=== PATIENT | female | born 1945 | race Two or more races ===

== ENCOUNTER 2022-01-18 19:30 | Emergency (ER) | payer OTHER ==
[~2022-01-18] VITALS: Ht 157.5 cm; Wt 90.7 kg
--- NOTE | 2022-01-18 20:50 | NUR ---
BIBFAMILY. L SHOULDER PAIN S.P TRIP AND FALL. -HT. PATIENT ALERT AND ORIENTED X3. AMBULATORY WITH NON LABORED BREATHING.
--- NOTE | 2022-01-18 21:25 | NUR ---
PAGED [employer]TH[employer]UCKER, MAGO ARNDT. MONIK CASTELLANOS AND MAGO ARNDT ARE SPEAKING
--- NOTE | 2022-01-18 21:30 | NUR ---
SPLINT APPLIED WITH AT BEDSIDE
--- NOTE | 2022-01-18 21:30 | NUR ---
COVID SWAB DONE AND SENT TO LAB
--- NOTE | 2022-01-18 22:04 | NUR ---
[facility] [phone]
--- NOTE | 2022-01-18 22:08 | NUR ---
EMT AT BEDSIDE FOR EKG
[2022-01-18 22:17] LABS: BASOPHILS % (AUTO) 0.3 % (0.0-2.0); EOSINOPHILS % (AUTO) 0.1 % (0.0-6.0); HEMATOCRIT 42 % (33-45); HEMOGLOBIN 13.9 g/dL (11.5-14.8); LYMPHOCYTES % (AUTO) 7.6 % (20.0-44.0); MEAN CORPUSCULAR HGB CONC 33 g/dl (31.0-36.0); MEAN CORPUSCULAR VOLUME 88 fL (82-100); MONOCYTES # (AUTO) 0.5 K/uL (0.1-1.30); NEUTROPHILS # (AUTO) 11.8 K/uL (1.8-8.9); PLATELET COUNT (AUTO) 192 K/uL (150-450); RED BLOOD CELL COUNT(AUTO) 4.78 MIL/uL (4.0-5.2); WHITE BLOOD COUNT (AUTO) 13.4 K/uL (4.3-11.0)
[2022-01-18 22:34] LABS: CALCIUM, SERUM 8.9 mg/dL (8.5-10.1); CREATININE 0.7 mg/dL (0.6-1.3); POTASSIUM 3.4 mmol/L (3.5-5.1)
--- NOTE | 2022-01-18 22:44 | NUR ---
CALLED [facility] FOR READ ON IMAGING
--- NOTE | 2022-01-18 23:51 | NUR ---
MONIK CASTELLANOS TALKING TO PRESTON CASTELLANOS
--- NOTE | 2022-01-19 01:00 | NUR ---
PT'S DAUGHTER WAS PROVIDED WITH [facility] CONTACT NUMBER PER HER REQUEST
--- NOTE | 2022-01-19 01:10 | NUR ---
PT ACCEPTED AT [facility] UNDER THE CARE OF DR. ROSAS. PT GOING TO [facility]. WILL CALL BACK FOR TRANSPORT.
--- NOTE | 2022-01-19 01:15 | NUR ---
PATIENT AND DAUGHTER REFUSE TO STAY IN HOSPITAL REQUEST TO LEAVE AGAINST MEDICAL ADVICE. MD YOUSIF MADE AWARE. AMA SIGNED AND PATIENT AND DAUGHTER ADVISED/EDUCATED THE DANGERS AND EFFECTS OF LEAVING AMA.
[2022-01-19 01:18] VITALS: BP 130/66
== END 2022-01-19 01:20 | disposition left against medical advice (07) ==
LOC: ER 19:33
DX: S42.212A Unspecified displaced fracture of surgical neck of left humerus, initial encounter for closed fracture (principal); S42.292A Other displaced fracture of upper end of left humerus, initial encounter for closed fracture; S62.617A Displaced fracture of proximal phalanx of left little finger, initial encounter for closed fracture; Y92.89 Other specified places as the place of occurrence of the external cause; W01.0XXA Fall on same level from slipping, tripping and stumbling without subsequent striking against object, initial encounter; Z20.822 Contact with and (suspected) exposure to COVID-19; Z53.29 Procedure and treatment not carried out because of patient's decision for other reasons; R94.31 Abnormal electrocardiogram [ECG] [EKG]
CPT/HCPCS: 36415; 73030-TC; 73130-TC; 80048-TC; 85025-TC; 85730-TC; 87081-TC; C9803